=== PATIENT | female | born 1975 | race Caucasian/White ===

== ENCOUNTER → 2017-09-17 | Outpatient (REF) | payer BC | LOC: M SFHCWAGY 13:46 | PROVIDERS: ATTEND Nurse Practitioner Women's Health | DX: Z12.4 Encounter for screening for malignant neoplasm of cervix (principal) ==

== ENCOUNTER → 2017-09-17 | Outpatient (CLI) | payer BC, OTHER ==
--- NOTE | 2017-09-17 15:15 | REPMRS ---
Patient History The patient states she had a clinical breast exam in 08/2017. Family history of breast cancer in paternal aunt at age 50 or over. Benign excisional biopsy of the right breast, 1994. Digital Woman Screen Mammo: September 17, 2017 - Exam #: [id number] Bilateral CC and MLO view(s) were taken. Technologist: Lashanda Cabrera, Technologist Prior study comparison: September 16, 2016, digital woman screen mammo performed at [facility]. September 14, 2015, digital woman screen mammo performed at [facility]. FINDINGS: The breast tissue is extremely dense which could obscure a lesion on mammography. There is no evidence of cancer on this mammogram. No significant changes when compared with prior studies. ASSESSMENT: BI-RADS/ACR category 2 mammogram. Benign finding(s). Recommendation Routine screening mammogram of both breasts in 1 year (for women over age 40). This mammogram was interpreted with the aid of an FDA-approved computer-aided dectection system.This patient's Lifetime Breast Cancer RIsk is estimated at 20.1%. Given the dense breast parenchyma and this increased risk, supplemental MRI screening of the breasts is warranted. Electronically Signed By: Garcia Coleman MD 09/17/17 [id number]
--- NOTE | 2017-09-18 06:59 | REP ---
PELVIC ULTRASOUND: CLINICAL: Amenorrhea. TECHNIQUE: Transabdominal pelvic ultrasound followed by transvaginal examination for better evaluation of the endometrium and adnexa with color evaluation. COMPARISON: None. FINDINGS: The bladder is unremarkable and measures 9.2 x 5.7 x 5.1 cm. Anteverted uterus measures 8.5 x 4.0 x 5.7 cm. The endometrial complex measures 2 mm thickness. Few endometrial cysts are identified measuring 2-3 mm maximal diameter and are nonspecific. A few nabothian cysts are also identified in the cervical region subcentimeter in size. Bilateral ovaries are normal in appearance. Right ovary measures 3.3 x 1.7 x 3.1 cm. Left ovary measures 2.5 x 1.4 x 2.6 cm. No pelvic fluid or adnexal mass lesion is appreciated. Mildly prominent periuterine and adnexal vessels are identified and nonspecific although pelvic congestion syndrome cannot be excluded and should be correlated clinically. IMPRESSION: 1. Essentially normal appearance of the uterus and ovaries. 2. Few scattered endometrial cysts measuring up to 2-3 mm are nonspecific. 3. Mildly prominent pelvic vessels raises the possibility of pelvic congestion syndrome and correlation is recommended.
== END ==
LOC: M WHC 12:54
PROVIDERS: ATTEND Nurse Practitioner Women's Health
DX: Z12.31 Encounter for screening mammogram for malignant neoplasm of breast (principal); N91.2 Amenorrhea, unspecified
CPT/HCPCS: 76830; 76856; G0202

== ENCOUNTER → 2019-02-16 | Outpatient (CLI) | payer BC, OTHER ==
--- NOTE | 2019-02-16 15:53 | REPMRS ---
Patient History The patient states she had a clinical breast exam in 01/2019. Family history of breast cancer at age 50 or over in paternal aunt. Benign excisional biopsy of the right breast, 1994. 3D TOMOSYNTHESIS WAS PERFORMED. Digital Woman Screen Mammo: February 16, 2019 - Exam #: [id number] Bilateral CC and MLO view(s) were taken. Technologist: Yuridia Pendleton, Technologist Prior study comparison: September 17, 2017, digital woman screen mammo performed at [facility]. September 16, 2016, digital woman screen mammo performed at [facility]. FINDINGS: The breast tissue is extremely dense which could obscure a lesion on mammography. There is no evidence of cancer on this mammogram. No significant changes when compared with prior studies. Assessment: BI-RADS/ACR category 2 mammogram. Benign Findings. Recommendation Routine screening mammogram of both breasts in 1 year (for women over age 40). This mammogram was interpreted with the aid of an FDA-approved computer-aided dectection system. Electronically Signed By: Garcia Coleman MD 02/16/19 [id number]
== END ==
LOC: M WHC 14:43
PROVIDERS: ATTEND Nurse Practitioner Women's Health
DX: Z12.31 Encounter for screening mammogram for malignant neoplasm of breast (principal); Z86.018 Personal history of other benign neoplasm

== ENCOUNTER → 2019-02-16 | Outpatient (REF) | payer BC ==
[2019-02-18 14:11] LABS: HPV HYBRID CAPTURE II Negative (Negative)
== END ==
LOC: M SFHCWAGY 14:47
PROVIDERS: ATTEND Nurse Practitioner Women's Health
DX: Z12.4 Encounter for screening for malignant neoplasm of cervix (principal)
CPT/HCPCS: 87624; G0123

== ENCOUNTER → 2021-02-06 | Outpatient (REF) | payer BC | LOC: M SFHCWAGY 10:20 | PROVIDERS: ATTEND Nurse Practitioner Women's Health | DX: Z12.4 Encounter for screening for malignant neoplasm of cervix (principal) | CPT/HCPCS: 87624; G0123 ==

== ENCOUNTER → 2021-02-06 | Outpatient (CLI) | payer BC ==
--- NOTE | 2021-02-06 16:18 | REPMRS ---
Patient History The patient states she had a clinical breast exam in January 2021. Family history of breast cancer at age 50 or over in paternal aunt. Benign excisional biopsy of the right breast, 1994. pt denied . Moderna vaccine #1 11/26/20 left arm. #2 01/03/21 left arm. Patient states no breast complaints today. Patient has signed MRS History Sheet. Digital Woman Screen Mammo: February 06, 2021 - Exam #: [id number] Bilateral CC and MLO view(s) were taken. Technologist: RT Nyla Prior study comparison: February 16, 2019, bilateral digital woman screen mammo performed at [facility]. September 17, 2017, digital woman screen mammo performed at [facility]. Screening. Digital screening (2D) mammography was performed bilaterally in the CC and MLO projections. Additionally, breast tomosynthesis (3D mammography) was performed bilaterally in the CC and MLO projections. Todays exam was compared to the prior exams. By history, the patient has no complaints of a palpable breast abnormality or other significant breast complaints. The breasts are unchanged in size and shape.Once again, dense heterogenous fibroglandular elements are seen bilaterally in a stable appearing pattern but to such a degree that the sensitivity of the mammogram in detecting cancer is decreased. There are no rakesh-soft tissue densities or spiculated masses. There is no internal architectural distortion. There are no suspicious rakesh-calcific clusters. Skin thickening or nipple retraction is not present. IMPRESSION: BI-RADS Category 2- Benign Findings. There is no evidence of malignant alteration of the breasts. Followup examination recommended in one year. The Volpara volumetric breast density category is D, the breasts are extremely dense which lowers the sensitivity of mammography. This mammogram was read with the assistance of moka5,an FDA approved computer aided detection system for mammography. The lifetime Tyrer-Cuzick score is 19.1 % Negative x-ray reports should not delay surgical consultation if a dominant or clinically suspicious mass is present. Not all breast cancers can be identified by mammography. Therefore, we recommend that you continue to perform regular breast self-examination and physical examination and then promptly contact your physician of any concerns or changes. Adenosis and dense breasts may obscure an underlying neoplasm. Assessment: BI-RADS/ACR category 2 mammogram. Benign Findings. Recommendation Routine screening mammogram of both breasts in 1 year. Electronically Signed By: Dominick Enriquez DO 02/06/21 [id number]
== END ==
LOC: M WHC 14:53
PROVIDERS: ATTEND Nurse Practitioner Women's Health
DX: Z12.31 Encounter for screening mammogram for malignant neoplasm of breast (principal); Z80.3 Family history of malignant neoplasm of breast